=== PATIENT | female | born 1965 | race Caucasian/White ===

== ENCOUNTER 2019-10-28 10:19 | Emergency (ER) | payer SELFPAY ==
[~2019-10-28] VITALS: Ht 165.1 cm; Wt 92.7 kg
--- NOTE | 2019-10-28 10:48 | NUR ---
PT WITH CP DESCRIBED SHARP "PIN POINTS HERE AND THERE". PT DENIES SOB. PT STATES SHE HAS BEEN FEELING MORE FATIGUED THAN USUAL. PT RATES PAIN 6/10 PT TO CARD MONITOR, PULSE OX, BP
[2019-10-28] MEDS ORDERED: IBUPROFEN 200 MG TABLET PO ONE (11:30)
[2019-10-28 11:33] VITALS: BP 163/112
[2019-10-28 11:33] LABS: BASOPHILS # (AUTO) 0.04 x10^3/uL (0-0.1); BASOPHILS % (AUTO) 1 % (0-1); EOSINOPHILS # (AUTO) 0.13 x10^3/uL (0-0.4); EOSINOPHILS % (AUTO) 2 % (1-7); LYMPHOCYTES # (AUTO) 2.05 x10^3/uL (1-3.4); LYMPHOCYTES % (AUTO) 32 % (22-44); MD NO; MEAN CORPUSCULAR HEMOGLOBIN 30.3 pg (27.0-34.8); MEAN CORPUSCULAR HGB CONC 33.6 g/dL (32.4-35.8); MEAN CORPUSCULAR VOLUME 90.3 fL (80-100); MEAN PLATELET VOLUME 8.8 fL (7.4-10.4); MONOCYTES # (AUTO) 0.56 x10^3/uL (0.2-0.8); MONOCYTES % (AUTO) 9 % (2-9); NEUTROPHILS # (AUTO) 3.59 x10^3/uL (1.8-6.8); NEUTROPHILS % (AUTO) 56 % (42-75); PLATELET COUNT 280 x10^3/uL (130-400); RED BLOOD COUNT 4.82 x10^6/uL (3.82-5.3)
--- NOTE | 2019-10-28 11:33 | NUR ---
PT RESTING IN [facility]. MD IS BEDSIDE.
[2019-10-28] MEDS ORDERED: IBUPROFEN 600 MG TABLET ONE (11:37)
[2019-10-28 11:41] LABS: ALBUMIN 3.6 g/dL (3.4-5.0); ANION GAP 5 mmol/L (5-15); CALCIUM 9.1 mg/dL (8.5-10.1); CHLORIDE 111 mmol/L (98-107)
[2019-10-28 11:47] LABS: ALANINE AMINOTRANSFERASE 27 U/L (12-78); ALKALINE PHOSPHATASE 127 U/L (45-117); BILIRUBIN,TOTAL 0.7 mg/dL (0.2-1.0); CREATININE 0.84 mg/dL (0.55-1.02); TOTAL PROTEIN 7.8 g/dL (6.4-8.2); TROPONIN I < 0.015 ng/mL (0.000-0.045)
== END 2019-10-28 12:58 | disposition home or self-care (01) ==
LOC: ED 12:52
DX: R07.2 Precordial pain (principal); M79.18 Myalgia, other site; Z90.49 Acquired absence of other specified parts of digestive tract
CPT/HCPCS: 36415; 71046; 80053; 84484; 85025; 93005; 99284; 99285